=== PATIENT | male | born 1960 | race Caucasian/White ===

== ENCOUNTER 2020-05-27 18:00 | Emergency (ER) | payer OTHER ==
[2020-05-27] MEDS ORDERED: LIDOCAINE 1%-EPI 1:100,000 20 ML VIAL SQ STA (18:20)
[2020-05-27] MEDS ORDERED: DIPH,PERTUS(ACELL)TETVAC-LF 0.5 ML VIAL IM ONE (18:20)
--- NOTE | 2020-05-27 18:25 | ED ---
General Adult HPI <Dolores Garzon - Last Filed: 05/27/20 20:02> - General Source: patient Mode of arrival: wheelchair Limitations: no limitations <GeneAntony Moris - Last Filed: 05/27/20 20:15> - General Chief complaint: Wound/Laceration Stated complaint: lt arm lac Time Seen by Provider: 05/27/20 18:12 - History of Present Illness Initial comments: Dictation was produced using [employer] dictation software. please excuse any grammatical, word or spelling errors. This patient was cared for during a federal and state declared state of emergency secondary to Covid 19 Chief Complaint: 60-year-old male presents with left forearm laceration. History of Present Illness: 60-year-old male he was working in with his family member building a deck. States that the ladder fell. He works at there is some nails on the ladder and fell onto his arm causing a laceration to the medial fo rearm. Patient's last tetanus shot was proximal to 5 years ago. Denies any medical history. No history of diabetes. No numbness and paresthesias to the left hand or left upper extremity. The ROS documented in this emergency department record has been reviewed and confirmed by me. Those systems with pertinent positive or negative responses have been documented in the HPI. All other systems are other negative and/or noncontributory. PHYSICAL EXAM: General Impression: Alert and oriented x3, not in acute distress HEENT: Normocephalic atraumatic, extra-ocular movements intact, pupils equal and reactive to light bilaterally, mucous membranes moist. Cardiovascular: Heart regular rate and rhythm Chest: Able to complete full sentences, no retractions, no tachypnea Abdomen: abdomen soft, non-tender, non-distended, no organomegaly Musculoskeletal: Pulses present and equal in all extremities, no peripheral edema Motor: no focal deficits noted Neurological: CN II-XII grossly intact, no focal motor or sensory deficits noted Skin: Intact with no visualized rashes Left forearm: Avulsion laceration to the left medial forearm measuring approximately 12 cm. There is exposed fat tissue but no exposure of muscle tissue. Psych: Normal affect and mood ED course: 60 yo male presents with a laceration to the left forearm. Upon arrival are within acceptable limits. Patient's tetanus will be updated. Wound is irrigated and sutures were placed by Dolores Garzon, physician help desk assistant. X-rays are unremarkable. Physical exam does not show any neuro or motor deficits to the left hand. Suture repaired. Patient given prophylactic antibiotics. Told to have sutures removed in 10-14 days. (Antony Mills) - Related Data Previous Rx's Medication Instructions Recorded Cephalexin [Keflex] 500 mg PO Q6HR 5 Days #20 cap 05/27/20 Allergies Allergy/AdvReac Type Severity Reaction Status Date / Time No Known Allergies Allergy Verified 05/27/20 18:08 Review of Systems ROS Other: All systems not noted in ROS Statement are negative. <Dolores Garzon - Last Filed: 05/27/20 20:02> ROS Other: All systems not noted in ROS Statement are negative. <Antony Mills - Last Filed: 05/27/20 20:15> ROS Statement: Those systems with pertinent positive or pertinent negative responses have been documented in the HPI. Past Medical History Past Medical History: No Reported History History of Any Multi-Drug Resistant Organisms: None Reported Past Surgical History: Orthopedic Surgery Additional Past Surgical History / Comment(s): stomach ulcer repair Past Psychological History: No Psychological Hx Reported Smoking Status: Current every day smoker Past Alcohol Use History: Daily Past Drug Use History: None Reported <Antony Mills - Last Filed: 05/27/20 20:15> General Exam Limitations: no limitations <Antony Mills - Last Filed: 05/27/20 20:15> Course Vital Signs 05/27/20 05/27/20 18:04 19:29 Temperature 98.3 F 97.9 F Pulse Rate 94 95 Respiratory 16 20 Rate Blood Pressure 115/82 140/83 O2 Sat by Pulse 100 98 Oximetry Procedures - Laceration Laceration #1 Consent Obtained: verbal consent Indication: laceration Site: upper extremity (Right forearm) Size (cm): 12 Description: flap (L-shaped) Depth: simple, single layer Anesthetic Used: lidocaine 1%, with epi Anesthesia Technique: local infiltration Amount (mls): 8 Pre-repair: irrigated extensively Type of Sutures: nylon Size of Sutures: 4-0 Number of Sutures: 16 Technique: simple, interrupted Patient Tolerated Procedure: well <Dolores Garzon - Last Filed: 05/27/20 20:02> Disposition <RyannDolores L - Last Filed: 05/27/20 20:02> Is patient prescribed a controlled substance at d/c from ED?: No Time of Disposition: 19:01 <Antony Mills - Last Filed: 05/27/20 20:15> Clinical Impression: Laceration Disposition: HOME SELF-CARE Condition: Good Instructions (If sedation given, give patient instructions): Laceration (ED) Additional Instructions: Please have your stitches removed in 10-14 days. Biaxin prescribed to you for infection prophylaxis. Please seek medical attention if you develop any worsening pain or infectious appearing drainage from the wound. Prescriptions: Cephalexin [Keflex] 500 mg PO Q6HR 5 Days #20 cap Referrals: Hortensia Stein DO [Primary Care Provider] - 1-2 days
[2020-05-27] MEDS ORDERED: BACITRACIN OINT 1 EACH PACKET TOPICAL ONE (18:50)
--- NOTE | 2020-05-27 19:15 | XR ---
EXAMINATION TYPE: XR forearm LT DATE OF EXAM: 05/27/2020 COMPARISON: NONE HISTORY: Pain. Laceration. TECHNIQUE: 2 views FINDINGS: There is laceration deformity of the soft tissues at the medial aspect of the mid shaft of the ulna. I see no fracture nor dislocation. Radius and ulna appear intact. There is some spurring on the olecranon process of the ulna. Carpal bones are intact. IMPRESSION: Soft tissue laceration deformity. No foreign body seen. No fracture.
[2020-05-27 20:29] VITALS: BP 148/100; PULSE 92; RESP 17; TEMP 97.6
== END 2020-05-27 20:27 | disposition home or self-care (01) ==
LOC: EC 18:00
DX: S51.812A Laceration without foreign body of left forearm, initial encounter (principal); F17.200 Nicotine dependence, unspecified, uncomplicated; Z23 Encounter for immunization; W11.XXXA Fall on and from ladder, initial encounter; Y99.8 Other external cause status
CPT/HCPCS: 12004; 90471; 90715; 99283